=== PATIENT | female | born 1960 | race Caucasian/White ===

== ENCOUNTER 2024-05-09 20:18 | Emergency (ER) | payer OTHER, SELFPAY ==
[2024-05-09 20:24] VITALS: BP 151/86
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
[2024-05-10 01:39] VITALS: BMI 27.7
[2024-05-10 01:40] VITALS: BP 125/69
== END 2024-05-10 02:51 | disposition home or self-care (01) ==
LOC: EMR 20:18
PROVIDERS: EMERGENCY PHYSICIAN Student in an Organized Health Care Education/Training Program
DX: S89.92XA Unspecified injury of left lower leg, initial encounter (principal); V89.2XXA Person injured in unspecified motor-vehicle accident, traffic, initial encounter
CPT/HCPCS: 99284; 73590; 93971